=== PATIENT | female | born 1990 | race Asian ===

== ENCOUNTER 2023-04-04 13:09 | Emergency (ER) | payer OTHER ==
[2023-04-04 13:24] VITALS: BP 140/92
--- NOTE | 2023-04-04 13:39 | ED Physician Documentation ---
PD HPI LOWER EXT INJURY - Stated complaint Stated Complaint: LT FOOT SWOLLEN/BUG - Chief complaint Chief Complaint: Wound - History obtained from History obtained from: Patient - History of Present Illness PD HPI LOW EXT INJURY LOCATION: Left, Foot - Additional information Additional information: Patient presents with tenderness and redness across the dorsum of the left foot after sustaining a number of bug or insect bites over the course last week while she was camping. She has several bites on both legs but noted some redness think increased pain across the top of the left foot for the last 2 days. She has been scratching at the wound quite a bit and has been applying hydrocortisone cream which has not been helpful. She has not taken any Benadryl or other allergy medicine. She is not diabetic, denies any fever or chills, no purulent drainage, no history of skin abscesses or cellulitis. Review of Systems Constitutional: reports: Reviewed and negative Cardiac: reports: Reviewed and negative Respiratory: reports: Reviewed and negative GI: reports: Reviewed and negative : reports: Reviewed and negative Skin: reports: Rash, Lesions, Bite / sting Musculoskeletal: reports: Extremity pain Neurologic: reports: Reviewed and negative Psychiatric: reports: Reviewed and negative Endocrine: reports: Reviewed and negative PD PAST MEDICAL HISTORY - Present Medications Home Medications: Ambulatory Orders Medication Instructions Recorded Confirmed Losartan Potassium 25 mg PO DAILY 04/04/23 04/04/23 SUMAtriptan [Imitrex] 25 mg PO PRN PRN 04/04/23 04/04/23 Sertraline HCl 100 mg PO DAILY 04/04/23 04/04/23 cephALEXin [Keflex] 500 mg PO Q6H 5 Days #20 cap 04/04/23 - Allergies Allergies/Adverse Reactions: Allergies Allergy/AdvReac Type Severity Reaction Status Date / Time No Known Drug Allergies Allergy Verified 04/04/23 13:16 Results - Vitals Vitals: Vital Signs - 24 hr 04/04/23 13:14 Temperature 37.1 C Heart Rate 78 Respiratory 15 Rate Blood Pressure 140/92 H O2 Saturation 99 PD Medical Decision Making - ED course Complexity details: considered differential, d/w patient ED course: 33-year-old female presents with tenderness and redness across the top of the left foot as described in HPI. This occurred after sustaining a number of bug bites in the area. Patient is well-appearing on physical exam, afebrile with stable vital signs. Her physical exam reveals a number of bug bites in various stages of healing on both legs and feet, there is mild warmth and erythema over the dorsum of the left foot without abscess or induration. I discussed with patient that this mild swelling and erythema can be due to the bite itself and from scratching at her foot but also may be an early cellulitis. She does have some tenderness in this area and states it feels substantially different than her other but weights therefore I am going to treat her with Keflex for the next 5 days for possible mild cellulitis. She was advised to avoid scratching at the area, she can continue cool compress, ibuprofen or Tylenol as needed, elevate the leg, utilize Benadryl and hydrocortisone cream for the itchiness. I advised her to return if she develops spreading erythema, fever, increased pain or swelling or other new concerns. Departure - Departure Disposition: 01 Home, Self Care Clinical Impression: Bug bite with infection Qualifiers: Encounter type: initial encounter Qualified Code(s): W57.XXXA - Bitten or stung by nonvenomous insect and other nonvenomous arthropods, initial encounter Condition: Good Instructions: ED Bite Insect Prescriptions: cephALEXin [Keflex] 500 mg PO Q6H 5 Days #20 cap Comments: You have a number of bug or insect bites on your legs. There may be a mild in fection called cellulitis of the top of the left foot likely from the bite or scratch from scratching. Please try to avoid scratching it, continue to use the hydrocortisone cream to help with the itching and you can also take Benadryl which can be purchased [id number]. I will give you a short course of antibiotics for skin infection, you will take this for the next 5 days. Use a cool compress and elevate the leg. Return to the ER or see your primary doctor if the redness spreads or your symptoms worsen. Medication sent to [facility]. Forms: PCP List
== END 2023-04-04 13:45 | disposition home or self-care (01) ==
LOC: ED 13:09
DX: M79.672 Pain in left foot (principal); W57.XXXA Bitten or stung by nonvenomous insect and other nonvenomous arthropods, initial encounter
CPT/HCPCS: 99281; 99283

== ENCOUNTER 2023-06-14 09:23 | Outpatient (CLI) | payer OTHER ==
--- NOTE | 2023-06-14 10:18 | SLEEP CARE CONSULTATION ---
Information from patient questionnaire entered by Aly Ramirez. I have reviewed and concur with the information entered by Aly Ramirez. This document represents the service I personally performed and the decisions made by me, Jose Reed MD, [facility]. History of Present Illness Service Date and Time: 06/14/2023 09 Reason for Visit: New patient Date of Onset: 15MONTHS Usual bedtime: 11PM-12AM Time it takes to fall asleep: 2HRS Snores at night: Yes Observed to quit breathing while asleep: Yes Sleeps alone due to snoring: No Number of times waking at night: 4 Reasons for waking at night: reports: Choking, Snoring, Pain, Other (UNKNOWN) Toss, Turn, or Twitch while sleeping: Yes Recalls having dreams: No Usually gets out of bed at: 5AM Feels refreshed in the morning: No Morning headache: Yes Sleepy or fatigued during the day: Yes Ever fallen asleep while driving: Yes Takes day naps: No Dreams during day naps: No Prior sleep studies: No Additional HPI information: I have the pleasure of seeing Ms. Cole today regarding the possibility of her having obstructive sleep apnea. As you know, she is a 33-year-old lady who complains of nocturnal choking and witnessed apneas by her and daughter. The patient tells me that she normally goes to bed around 11 pm - midnight, and it takes her approximately 2 hours to fall asleep. Her sleeps in the same bed. She can recall waking up on the average of 4 times during the night. Most of the time she wakes up because of pain, her own snoring, choking, and having to gasp for air. There is a lot of tossing and turning in her sleep. She has somniloquy (sleep talking) but not somnambulism (sleep walking). Generally, there is no recollection of dreams. In the morning she usually gets up out of the bed around 5 a.m. not feeling refreshed nor rested. She usually has a morning headache that lasts all day. During the day she complains of feeling sleepy and fatigued. Her score on [place] Sleepiness Scale is 20 out of 24. She never has fallen asleep while driving nor has had any accident due to sleepiness. She usually does not take naps during the day. Upon falling asleep during the day she denies having vivid dreams. She has never had sleep paralysis, experienced cataplexy or symptoms of restless leg syndrome. She reports having impaired concentration during the day. - Parasomnia Symptoms Ever been unable to move upon waking from sleep: No Walks in sleep: No Talks in sleep: Yes Ever acted out dreams in sleep: No Ever felt weak in the knees when startled or emotional: No Bothered by creepy, crawly, restless sensations in legs: Yes Problems with memory or concentration: Yes Subjective Initial [place] Sleepiness Scale score: 22 (06/14/23) Past Medical History Past Medical History: reports: Hypertension, Depression Social History The patient's occupation is a AM. Patient is and lives in . Have you smoked in the past 12 months: No Alcohol use: Yes Alcohol amount and frequency: OCCASSIONALLY Caffeine use: Yes Caffeine amount and frequency: 1-2 TIMES A WEEK Family History Family history of sleep disordered breathing: No Allergies and Home Medications Known drug allergies: No Drug allergies reviewed: Yes Home medication list reviewed: Yes Allergy and home medication list: Allergies No Known Drug Allergies Allergy (Verified 06/11/23 10:37) Review of Systems Weight gain over past 5 years: 10 Weight loss over past 5 years: 5 Cardiovascular: reports: high blood pressure Respiratory: denies: shortness of breath, wheeze, sputum production, chronic cough, other Gastrointestinal: denies: heartburn, difficulty swallowing, nausea, vomitting, diarrhea, abdominal pain, other Urinary: denies: incontinence, frequency, urgency, impotence, other Neurological: reports: headaches Psychiatric: reports: depression Ear/Nose/Throat: denies: nasal congestion, sinus problems, nose bleeds, dry mouth/throat, hoarseness, injury to nose, tonsillectomy, wisdom teeth removed, other Endocrine: denies: thyroid disease, history of goiter, sluggishness, too hot or cold, excessive thirst, increased appetite, increased urination, unexplained w eakness, other Musculoskeletal: denies: joint pain, neck pain, back pain, joint swelling, muscle pain or cramping, mobility problems, other Immunologic: denies: sneezing, rash, itching, allergies to food or environment, other Physical Exam Vital signs obtained and entered by: ALY Alberto MA Blood Pressure: 128/78 (LEFT ARM) Cuff size: regular Heart Rate: 69 O2 Saturation: 98 Height: 4 ft 11 in Weight: 120 lb Body Mass Index: 24.2 BMI Classification: Normal Neck circumference: 12.5 Mood/affect: Normal HEENT: No craniofacial malformation Nostrils: patent to airflow Turbinates: swollen Septum: midline Mouth and throat: narrow oropharynx Soft palate: long Hard palate: normal Uvula: normal Uvula visualization: 50% Mallampati Class II Tongue: normal in size Tonsils: small Chin and jaw: normal size and position Neck: normal w/o lymphadenopathy or thyromegaly Heart: regular rate and rhythm Lungs: clear bilaterally Extremities: no edema or clubbing Neurologic: intact Impression and Plan IMPRESSION: 1. Obstructive Sleep Apnea-Hypopnea Syndrome, as evident by history of loud and irregular snoring, observed cessation of breath while asleep, frequent awakenings during the night, nocturnal choking, unrefreshed sleep, cognitive impairment, and daytime hypersomnolence. Narrow oropharynx and obesity are common predisposing factors for obstructive sleep apnea-hypopnea syndrome. I recommend proceeding to polysomnography to confirm the diagnosis and to assess severity. If she has significant sleep disordered breathing, a manual CPAP titration study will also be performed to find the optimal treatment pressure. I informed the patient of what the sleep studies involve and after some discussion, she agreed to proceed. Plan: 1. Schedule polysomnography +/- manual CPAP titration study and return in 1 to 2 weeks after the study to discuss result and initiate therapy. 2. Avoid long distance driving or when feeling sleepy. 3. Avoid alcohol, sedatives and muscle relaxants around bedtime. Follow up with Sleep Care in: 1-2 months Plan: in-lab PSG Visit Type: In Office Time Spent with Patient (minutes): 15 Provider Statement: I spent 100% of the Face to Face Visit with the patient with greater than 50% spent counseling the patient and coordination of care.
[2023-06-14 10:21] VITALS: BP 128/78; O2SAT 98
== END 2023-06-14 09:24 | disposition home or self-care (01) ==
LOC: SC 09:23
PROVIDERS: ATTEND Internal Medicine Pulmonary Disease
DX: R06.83 Snoring (principal); G47.8 Other sleep disorders; R06.81 Apnea, not elsewhere classified; R51.9 Headache, unspecified; G47.10 Hypersomnia, unspecified; R53.83 Other fatigue; I10 Essential (primary) hypertension
CPT/HCPCS: 99202; 99212

== ENCOUNTER 2023-07-12 12:20 | Outpatient (CLI) | payer OTHER | END 2023-07-12 12:21 | disposition home or self-care (01) | LOC: SC 12:20 | PROVIDERS: ATTEND Internal Medicine Pulmonary Disease | DX: G47.33 Obstructive sleep apnea (adult) (pediatric) (principal); R09.02 Hypoxemia; R00.0 Tachycardia, unspecified; I10 Essential (primary) hypertension | CPT/HCPCS: 95806 ==

== ENCOUNTER 2023-09-06 12:50 | Outpatient (CLI) | payer OTHER ==
--- NOTE | 2023-09-06 16:47 | SLEEP CARE CONSULTATION ---
Information from patient questionnaire entered by Aly Ramirez. I have reviewed and concur with the information entered by Aly Ramirez. This document represents the service I personally performed and the decisions made by me, Jose Reed MD, [facility]. History of Present Illness Service Date and Time: 09/06/2023 1250 Initial [place] Sleepiness Scale score: 22 (06/14/23) Current [place] Sleepiness Scale score: 19 (09/06/23) Additional HPI information: Ms. Cole returned for follow up of the home sleep apnea test (HSAT) she had on 07/12/2023. The test showed severe obstructive sleep apnea-hypopnea, with an AHI of 35.7/hr and maeve SaO2 of 86%. During the study, the patient had 189 apneas (189 obstructive, 0 central, 0 mixed) and 15 hypopneas. The longest episode lasted 93.5 seconds. The patient slept mostly supine (supine AHI was 42.1 and non-supine, 1.13). Hypoxemia was mild, with the lowest oxygen saturation of 86 % and 2.1 minutes with SaO2 under 90%. Baseline oxygen saturation was normal (Average oxygen saturation was 95%). Also there was tachycardia, with maximum recoded heart rate of 130 beats per minute. The patient was informed of these findings. I explained to her the pathophysiology behind obstructive sleep apnea. We then spent quite a bit of time discussing different treatment options. For mild obstructive sleep apnea, surgery and oral appliance are alternatives to nasal CPAP therapy but in moder ate or severe cases, nasal CPAP is the most effective and reliable treatment. After some discussion, she opted to go with the nasal CPAP therapy. Sleep Study - Results Type of Sleep Study: Home sleep study (COMPLETED 07/12/23) Prior sleep studies: No Allergies and Home Medications Drug allergies reviewed: Yes Home medication list reviewed: Yes Allergy and home medication list: Allergies No Known Drug Allergies Allergy (Verified 09/02/23 15:24) Review of Systems Review of systems same as previous: Yes (NO CHANGE) Physical Exam Vital signs obtained and entered by: ALY Alberto MA Blood Pressure: 138/92 (RIGHT ARM) Heart Rate: 76 O2 Saturation: 98 Height: 4 ft 11 in Weight: 120 lb Body Mass Index: 24.2 BMI Classification: Normal Impression and Plan IMPRESSION: 1. Obstructive Sleep Apnea-Hypopnea Syndrome, severe, associated with mild hypoxemia. Obviously, this is the cause of the patients symptoms of unrefreshed sleep, and excessive daytime sleepiness. As mentioned above, the patient will return for a manual CPAP/BiPAP titration study. PLAN: 1. Manual CPAP/BiPAP titration study. 2. I will prescribe her the equipment after the study. 3. Return for follow up after one month of using the CPAP. Follow up with Sleep Care in: 1-2 months Visit Type: In Office Time Spent with Patient (minutes): 15 Provider Statement: I spent 100% of the Face to Face Visit with the patient with greater than 50% spent counseling the patient and coordination of care.
[2023-09-06 16:53] VITALS: BP 138/92; O2SAT 98
== END 2023-09-06 12:51 | disposition home or self-care (01) ==
LOC: SC 12:50
PROVIDERS: ATTEND Internal Medicine Pulmonary Disease
DX: G47.33 Obstructive sleep apnea (adult) (pediatric) (principal)
CPT/HCPCS: 99212